=== PATIENT | female | born 1970 | race Caucasian/White ===

== ENCOUNTER 2022-03-04 07:34 | Day surgery (SDC) | payer BC, OTHER ==
[2022-02-26 14:15] VITALS: BMI 28.3
[2022-03-04] MEDS ORDERED: PROPOFOL 80 ML ONE (08:26)
[2022-03-04] MEDS ORDERED: LIDOCAINE HCL/PF 2% SDV 5ML VIAL ONE (08:26)
[2022-03-04 10:02] VITALS: RESP 19
[2022-03-04 10:03] VITALS: BP 112/74; PULSE 82; TEMP 97.7
== END 2022-03-04 10:03 | disposition home or self-care (01) ==
LOC: FASU-ENDO 07:34
PROVIDERS: ATTEND Internal Medicine Gastroenterology
PROC: 0DJD8ZZ Inspection of Lower Intestinal Tract, Via Natural or Artificial Opening Endoscopic (ICD-10-PCS; principal; 2022-03-04 08:59)
DX: Z12.11 Encounter for screening for malignant neoplasm of colon (principal); Z83.71 Family history of colonic polyps
CPT/HCPCS: 84703

== ENCOUNTER 2023-01-23 19:11 | Emergency (ER) | payer BC, OTHER ==
[2023-01-23 19:24] VITALS: BP 168/89; PULSE 95; RESP 19; TEMP 99.3; BMI 28.9
== END 2023-01-23 20:23 | disposition home or self-care (01) ==
LOC: FER 19:11
DX: R05.3 Chronic cough (principal)
CPT/HCPCS: 99283-25